=== PATIENT | male | born 1995 | race Caucasian/White ===

== ENCOUNTER 2016-12-12 20:47 | Emergency (ER) | payer OTHER ==
[~2016-12-12] VITALS: Ht 167.6 cm; Wt 79.0 kg
[~2016-12-12 20:47] MED LIST: APIX2.5T PO; HYDR-3498 PO
[2016-12-12 21:06] VITALS: Ht 167.6 cm; Wt 79.0 kg
[2016-12-13] MEDS ORDERED: DIPHENHYDRAMINE 50 MG INJ IV ONE
[2016-12-13] MEDS ORDERED: METOCLOPRAMIDE 10 MG INJ IV ONE
[2016-12-13] MEDS ORDERED: SOD CHLORIDE 0.9% 1,000 ML IV ONE
[2016-12-13] MEDS ORDERED: ACETAMINOPHEN 325 MG TAB PO ONE
--- NOTE | 2016-12-13 00:32 | RADRPT ---
PROCEDURE: XR Hand. CLINICAL INDICATION: Post traumatic right hand pain TECHNIQUE: PA, oblique and lateral views of the right hand were obtained. COMPARISON: None available. FINDINGS: Mineralization is within normal limits. No fracture or osseous lesion is identified. Joint spaces are preserved. Soft tissues are unremarkable. No radiopaque foreign body is present. RPTAT:HJJR IMPRESSION: Unremarkable right hand series. Physician Frank Date Time Electronically viewed and signed by Tristen Goyal Physician on 12/13/2016 00:31 /
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
[2016-12-13] MEDS ORDERED: ACET500C5 PO (01:11)
[2016-12-13] MEDS ORDERED: ELIM TOP (02:09)
[2016-12-13] MEDS ORDERED: HC1C30 TOP (02:09)
[2016-12-13 02:40] VITALS: BP 120/69; PULSE 100; RESP 18; TEMP 98.4
== END 2016-12-13 02:40 | disposition home or self-care (01) ==
LOC: FTE 20:47
DX: S60.221A Contusion of right hand, initial encounter (principal); Q28.2 Arteriovenous malformation of cerebral vessels; L30.9 Dermatitis, unspecified; F17.210 Nicotine dependence, cigarettes, uncomplicated; W22.8XXA Striking against or struck by other objects, initial encounter; Y92.9 Unspecified place or not applicable
CPT/HCPCS: 73130; 96361; 96374; 96375; J1200; J2765; J7030; Z7502; Z7610